=== PATIENT | male | born 1950 | race Asian ===

== ENCOUNTER 2022-11-11 21:22 | Emergency (ER) | payer OTHER ==
[~2022-11-11] VITALS: Ht 165.1 cm; Wt 82.6 kg
[~2022-11-11 21:22] MED LIST: ACET-206 PO; AMLODIPINE BESYLATE PO; Artificial Tears 0.2 OPTH; BRIM0.2S OPTH; BRIMONIDINE0.15 % OPTH; DOCU100C10 PO; DOK100 MG PO; FOLI1TAB26 PO; HYDR50CA21 PO; HYDROXYZINE HYD25 MG PO; LATA0.00 OPTH; MAGNSUS68 PO; MECLIZINE25 MG PO; MILK OF MA400 MG/5 M PO; MULTIVITAMI1 PO; MULTTAB52 PO; NORVASC 5MG TAB PO; QUET100T2 PO; QUET25TA2 PO; REFRESH TEARS0.5 % OPTH; TIMO0.5S26 OPTH; TIMOLOL MAL0.25 % OPTH; TOBRADEX OPTH; TYLENOL325 MG PO; XALATAN0.005 % OPTH; [UNRECOGNIZED DRUG - CODE] OPTH; [UNRECOGNIZED DRUG - CODE] OTIC
[2022-11-11 21:25] VITALS: BP 159/98; TEMP 97.9
[2022-11-12] MEDS ORDERED: BRIMONIDINE0.2 % OPTH (08:25)
[2022-11-12] MEDS ORDERED: QUETIAPINE100 MG PO (08:29)
[2022-11-12] MEDS ORDERED: REFRESH PLUS0.51 OPTH (08:30)
== END 2022-11-11 21:45 | disposition still patient (30) ==
LOC: ED 21:22
DX: F20.89 Other schizophrenia (principal); F17.210 Nicotine dependence, cigarettes, uncomplicated; Z02.79 Encounter for issue of other medical certificate
CPT/HCPCS: 81002; 87635; 93005; 99283; U0003